=== PATIENT | male | born 2000 | race Two or more races ===

== ENCOUNTER 2018-10-23 02:24 | Emergency (ER) | payer MEDICAID ==
[~2018-10-23] VITALS: Ht 188 cm; Wt 91.2 kg
[2018-10-23 02:36] VITALS: BP 123/74
[2018-10-23] MEDS ORDERED: IBUPROFEN 600 MG TABLET PO ONE ×2 (04:28→04:30)
== END 2018-10-23 04:40 | disposition home or self-care (01) ==
LOC: ER 02:24
DX: S00.03XA Contusion of scalp, initial encounter (principal); S00.33XA Contusion of nose, initial encounter; R51 Headache; W18.09XA Striking against other object with subsequent fall, initial encounter; Y93.67 Activity, basketball; Y92.39 Other specified sports and athletic area as the place of occurrence of the external cause; Y99.8 Other external cause status
CPT/HCPCS: 70160-TC; 70450-TC

== ENCOUNTER 2020-05-06 23:28 | Emergency (ER) | payer OTHER ==
[~2020-05-06] VITALS: Ht 188 cm; Wt 97.5 kg
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
[2020-05-07 00:06] VITALS: BP 146/94
--- NOTE | 2020-05-07 00:33 | NUR ---
AWAITING FOR CT
[2020-05-07] MEDS ORDERED: AMOX/CLAVULANATE 875 MG TABLET ONE (00:59)
[2020-05-07] MEDS ORDERED: AMOX/CLAVULANATE 875 MG TABLET PO ONE (01:00)
--- NOTE | 2020-05-07 01:04 | NUR ---
Patient discharged to home in stable condition. Written and verbal after care instructions given. Patient verbalizes understanding of instruction and RX. Pt was educated on following up with a MD provided by MD Leslie. Pt denies pain. vss.
== END 2020-05-07 01:06 | disposition home or self-care (01) ==
LOC: ER 23:35
DX: S02.2XXA Fracture of nasal bones, initial encounter for closed fracture (principal); W22.8XXA Striking against or struck by other objects, initial encounter; Y93.89 Activity, other specified; Y92.89 Other specified places as the place of occurrence of the external cause; Y99.8 Other external cause status
CPT/HCPCS: 70486-TC